=== PATIENT | female | born 1985 | race African-American/Black ===

== ENCOUNTER 2017-04-06 02:50 | Emergency (ER) | payer MEDICAID ==
[2017-04-06 02:56] VITALS: BP 139/89
[2017-04-06] MEDS ORDERED: ONDANSETRON 4 MG TAB.RAPDIS PO ONE (03:18)
[2017-04-06] MEDS ORDERED: HYDROCODONE/ACETAMINOPHEN 5-325 MG 6 TAB/DSPK PO PRN (03:18)
[2017-04-06] MEDS ORDERED: OXYCODONE-ACETAMINOPHEN 5-325 MG TABLET PO ONE (03:18)
[2017-04-06] MEDS ORDERED: PENICILLIN V POTASSIUM 500 MG TABLET PO ONE (03:18)
--- NOTE | 2017-04-06 03:21 | ER Document Report ---
HPI - HPI Patient complains to provider of: Dental pain Pain Level: 5 Context: Patient is a 31-year-old female comes emergency department for chief complaint of pain in her right upper mouth/jaw which radiates up towards her right face/ ear. She has a known broken tooth for the past 2 months, she started a job and is waiting for her dental insurance to kick in, she states over the past day the pain has become unbearable. She denies any swelling of the face, denies fever, neck pain, denies any other symptoms. She takes no daily medications. Past medical history of gastric sleeve. Past Medical History - General Information source: Patient - Social History Smoking Status: Never Smoker Frequency of alcohol use: None Drug Abuse: None Lives with: Family Family History: Reviewed & Not Pertinent Patient has suicidal ideation: No Patient has homicidal ideation: No - Medical History Medical History: Negative Renal/ Medical History: Denies: Hx Peritoneal Dialysis Surgical Hx: Negative - Immunizations Immunizations up to date: Yes Hx Diphtheria, Pertussis, Tetanus Vaccination: Yes Vertical Provider Document - CONSTITUTIONAL General Appearance: Mild Distress - patient uncomfortable - INFECTION CONTROL TRAVEL OUTSIDE OF THE [place] IN LAST 30 DAYS: No - HEENT HEENT: Atraumatic, Normal ENT Exam, Normocephalic Mouth Diagram: 1 - dental fracture; no surrounding erythema or swelling noted, no drainable abscess noted - NECK Neck: Normal Inspection - RESPIRATORY Respiratory: Breath Sounds Normal, No Respiratory Distress O2 Sat by Pulse Oximetry: 100 - CARDIOVASCULAR Cardiovascular: Regular Rate, Regular Rhythm - GI/ABDOMEN Gastrointestinal: Abdomen Soft, Abdomen Non-Tender - MUSCULOSKELETAL/EXTREMETIES Musculoskeletal/Extremeties: MAEW, FROM, Non-Tender Course - Re-evaluation Re-evalutation: Patient with dental fracture and what appears to be associated pain, probably early infection, no abscess noted, no other abnormalities noted. Placing on antibiotics, patient states she will very soon have dental insurance and plans to follow-up with a dentist. I encouraged her to do so. Discussed return precautions, patient states understanding and agreement. - Vital Signs Vital signs: Temp Pulse Resp BP Pulse Ox 97.7 F 65 18 139/89 H 100 04/06/17 02:54 04/06/17 02:54 04/06/17 02:54 04/06/17 02:54 04/06/17 02:54 Discharge - Discharge Clinical Impression: Pain, dental Condition: Stable Disposition: HOME, SELF-CARE Additional Instructions: Your examination shows dental caries and suspected dental infection, please take the antibiotics as prescribed to completion. Follow-up with the dentist for additional management to prevent this from occurring again. Return to the emergency department for any concerning or worsening symptoms including swelling of the face. Prescriptions: Penicillin V Potassium [Penicillin Vk 500 mg Tablet] 500 mg PO BID #20 tablet Forms: Return to Work
== END 2017-04-06 05:45 | disposition home or self-care (01) ==
LOC: ER 02:50
DX: K08.89 Other specified disorders of teeth and supporting structures (principal); R68.84 Jaw pain; R51 Headache
CPT/HCPCS: 99282; S0119; J3490